=== PATIENT | male | born 1975 | race Caucasian/White ===

== ENCOUNTER 2018-09-26 15:04 | Emergency (ER) | payer OTHER ==
[2018-09-26] MEDS ORDERED: KETOROLAC 15 MG/1 ML SDV ONE (15:26)
[2018-09-26] MEDS ORDERED: KETOROLAC 15 MG/1 ML SDV IVP ONE (15:30)
[2018-09-26] MEDS ORDERED: fentaNYL 100 MCG/2 ML INJ IVP ONE (15:30)
[2018-09-26] MEDS ORDERED: DIAZEPAM 5 MG TAB PO ONE (15:30)
[2018-09-26] MEDS ORDERED: NS 1,000 ML IV ONE (15:30)
[2018-09-26 15:40] LABS: PLATELET COUNT 341 10^3/uL (150-400)
--- NOTE | 2018-09-26 15:41 | EDPHY ---
General - History Smoking Status: Never smoked Time Seen by Provider: 09/26/18 15:14 Narrative: CLINICAL IMPRESSION: Right ureterolithiasis, right exophytic renal cyst, pyuria ASSESSMENT/PLAN: 43-year-old male presents with right lower quadrant and right flank pain since this morning. Patient arrives appearing very uncomfortable and writhing on the bed but improved with IV analgesics. Vital signs stable, afebrile. He is otherwise healthy with no diabetes or history of kidney stones. Urine shows hematuria and pyuria. Culture ordered. He has mild leukocytosis of 12, creatinine of 1. CT shows a 2.5 mm right UV P stone with hydronephrosis. He also has a 6 mm exophytic cyst with calcification. It was recommended by Radiology that he have repeat CT imaging in 6 months and I related this to the patient. He was prescribed Flomax, [place], and Toradol, encouraged to increase fluid hydration and strain his urine. Antibiotics started pending urine culture. Follow up with Urology. Warning signs return to ED sooner alignment discharge. DIFFERENTIAL DX: Abdominal pain includes but not limited to acute appendicitis, diverticulitis, cholecystitis, pancreatitis, SBO, gastroenteritis, constipation ED PROCEDURES: See lab and/or imaging results below ED COURSE: 3:30 p.m.:. Patient seen by myself. Appears very uncomfortable, writhing in pain, appears consistent with renal colic. IV analgesics order, CT ordered. 4:20 p.m.: CT scan read by Dr. Dumont. 2.5 mm UVJ stone on the right with mild hydro. Patient also has an exophytic cyst of the right kidney with some calcification. It was recommended he have 6 month follow-up CT. This will be relayed to the patient. 4:25 p.m.: CT results discussed with patient. Will provide urology follow-up. Emphasized the importance of 6 month follow-up for exophytic cyst on the right kidney. CHIEF COMPLAINT: Right lower quadrant abdominal and flank pain HPI: 43-year-old male presents to the emergency department with relatively sudden onset right lower quadrant and right flank abdominal pain beginning this morning that has been progressively getting worse through the day. Patient reports feeling nauseous but has not vomited. Was feeling well prior to this morning and felt well last night. No decrease in appetite. No reported fevers. He does report he is on a ketogenic diet which predisposes him to kidney stones but he does not have a history of kidney stones. He reports no visible blood in his urine. He reports some urgency and burning with urination. No history of abdominal surgery. PAST MEDICAL HISTORY: Hypothyroidism See nurse/triage notes for additional history if applicable Pertinent Past Surgical History: None reported Family History: Noncontributory Social History: Here with family REVIEW OF SYSTEMS: All other systems negative Constitutional: No fever, no chills, appetite change. Cardiovascular: No chest pain, no palpitations. Respiratory: No cough, no shortness of breath. Gastrointestinal: Positive for right-sided abdominal pain, no vomiting, diarrhea. Genitourinary: No hematuria, positive for dysuria, positive for right-sided flank pain, pelvic pain Musculoskeletal: No back pain, joint swelling, joint pain, myalgias. Skin: No rashes, color change. PHYSICAL EXAM: General Appearance: Alert, oriented, pale, appears uncomfortable, colicky and writhing on the bed, non-toxic appearing, hypertensive, no hypoxia. HEENT: Oropharynx clear is no erythema or exudates, no tonsillar hypertrophy or asymmetry. Dentition without abnormality. Respiratory: There are no retractions, lungs are clear to auscultation. Cardiac: Regular rate and rhythm, no murmurs or gallops. Gastrointestinal: Abdomen is soft, generalized tenderness to right lower quadrant extending into right lateral abdomen and right flank bowel sounds normal, no masses/hernia, no rigidity, guarding or focal peritoneal findings. Neurological: [ Alert and oriented x 3, CN 2-12 grossly intact Skin: Warm, dry, no rashes, no nodules on palpation. MEDICAL DECISION MAKING: Patient was seen independently. Secondary supervising physician at time of evaluation was Dr. Spencer. Diagnosis: Right ureterolithiasis, right exophytic renal cyst, pyuria . New, requires workup Summary: See Assessment and Plan for summary of ED visit Clinical lab tests: ordered / reviewed. Independent visualization of images, tracing, or specimens: Yes. Patient Progress: Improved, stable for discharge. (Javad Arriaga) PHYSICIAN DOCUMENTATION: The patient was evaluated and managed by the Physician Assistant Professor Of Music. My co- signature indicates that I have reviewed this chart and I agree with the findings and plan of care as documented. I am the secondary supervising physician. (Becki Spencer) - Diagnostics Imaging Results: Imaging Impressions Abdomen/Pelvis CT 09/26/18 15:30 Impression: 1. A 2.5-mm calculus at the right ureterovesical junction, with mild hydronephrosis and hydroureter. 2. A 2.5-cm mildly complex cyst exophytic off the inferior pole of the right kidney. Recommend six-month follow-up CT. This would also be able to evaluate a nonspecific nodule subcentimeter in size in the posterior left lung base. Results called and discussed with Javad Arriaga PA-C, on September 26, 2018 at 1623. Attention: This CT examination is specifically designed to evaluate patients who are clinically suspected of having acute obstructive uropathy. This examination does not use radiographic contrast, and as such, provides only a limited evaluation of the abdomen, pelvis, and retroperitoneum. If there is further clinical suspicion for pathological conditions other than obstructive uropathy, a complete CT evaluation of the abdomen and pelvis utilizing intravenous, oral, and rectal contrast should be considered. E:CN/amm - Objective Vital Signs: Initial Vital Signs Temperature (C) 36.5 C 09/26/18 15:08 Heart Rate 140 H 09/26/18 15:08 Respiratory Rate 20 09/26/18 15:08 Blood Pressure 131/88 H 09/26/18 15:08 O2 Sat (%) 100 09/26/18 15:08 O2 Delivery Mode Room Air Allergies/Adverse Reactions: Penicillins Allergy (Unknown, Verified 09/26/18 15:06) Home Medications: Medication Instructions Recorded Depakote 04/02/12 [place] Thyroid 09/26/18 Azithromycin 09/26/18 Cephalexin [Keflex] 500 mg PO QID #20 cap 09/26/18 Hydrocodone/APAP 5/325 [[place] 1 - 2 tab PO Q4H PRN #10 tab 09/26/18 5/325 (*)] Ketorolac Tromethamine [Toradol 1 tab PO BID PRN 5 Days tab 09/26/18 10mg tab] Tamsulosin HCl [Flomax 0.4 MG (RX)] 0.4 mg PO DAILY #7 cap 09/26/18 Verapamil 09/26/18 Laboratory Results: Laboratory Results 09/26/18 15:12 09/26/18 15:12 09/26/18 09/26/18 09/26/18 15:25 15:13 15:12 WBC RBC Hgb POC Hgb 17.3 gm/dL gm/dL (13.7-17.5) Hct POC Hct 51 % % (40-51) MCV MCH MCHC RDW Plt Count MPV Neut % (Auto) Lymph % (Auto) Falls % (Auto) Eos % (Auto) Baso % (Auto) Nucleat RBC Rel Count Absolute Neuts (auto) Absolute Lymphs (auto) Absolute Monos (auto) Absolute Eos (auto) Absolute Basos (auto) Absolute Nucleated RBC Immature Gran % Seg Neutrophils % Band Neutrophils % Lymphocytes % Monocytes % Eosinophils % Basophils % Metamyelocytes % Myelocytes % Promyelocytes % Blast Cells % Immature Gran # Absolute Seg Neuts Absolute Band Neuts Absolute Lymphocytes Absolute Monocytes Absolute Eosinophils Absolute Basophils Absolute Metamyelocyte Absolute Myelocytes Absolute Promyelocytes Absolute Plasma Cells Nucleated RBCs Absolute Blast Cells Plasma Cells % Platelet Estimate Oval Macrocytes POC Sodium 141 mEq/L mEq/L (135-145) Sodium 137 mEq/L mEq/L (135-145) POC Potassium 3.2 mEq/L L mEq/L (3.3-5.0) Potassium 3.5 mEq/L mEq/L (3.5-5.2) POC Chloride 102 mEq/L mEq/L (97-110) Chloride 103 mEq/L mEq/L (97-110) Carbon Dioxide 21 mEq/l L mEq/l (22-31) POC Total CO2 23 mEq/L mEq/L (22-31) Anion Gap 13 mEq/L mEq/L (6-14) POC BUN 23 mg/dL mg/dL (7-23) BUN 23 mg/dL mg/dL (7-23) Creatinine 1.0 mg/dL mg/dL (0.7-1.3) POC Creatinine 1.0 mg/dL mg/dL (0.7-1.3) Estimated GFR > 60 Glucose 114 mg/dL H mg/dL (70-100) POC Glucose 120 mg/dL H mg/dL (70-100) Calcium 9.8 mg/dL mg/dL (8.5-10.4) Urine Color JASON Urine Appearance MODERATELY TURBID Urine pH 5.0 (5.0-7.5) Ur Specific [place] 1.023 (1.002-1.030) Urine Protein NEGATIVE (NEGATIVE) Urine Ketones 1+ H (NEGATIVE) Urine Blood 3+ H (NEGATIVE) Urine Nitrate NEGATIVE (NEGATIVE) Urine Bilirubin NEGATIVE (NEGATIVE) Urine Urobilinogen NEGATIVE EU EU (0.2-1.0) Ur Leukocyte Esterase NEGATIVE (NEGATIVE) Urine RBC 50-182 /hpf H /hpf (0-3) Urine WBC 5-10 /hpf H /hpf (0-3) Ur Epithelial Cells NONE SEEN /lpf /lpf (NONE-1+) Urine Mucus TRACE /lpf /lpf (NONE-1+) Urine Glucose NEGATIVE (NEGATIVE) 09/26/18 15:12 WBC 12.70 10^3/uL H 10^3/uL (3.80-9.50) RBC 5.15 10^6/uL 10^6/uL (4.40-6.38) Hgb 16.8 g/dL g/dL (13.7-17.5) POC Hgb Hct 48.8 % % (40.0-51.0) POC Hct MCV 94.8 fL fL (81.5-99.8) MCH 32.6 pg pg (27.9-34.1) MCHC 34.4 g/dL g/dL (32.4-36.7) RDW 11.9 % % (11.5-15.2) Plt Count 341 10^3/uL 10^3/uL (150-400) MPV 9.0 fL fL (8.7-11.7) Neut % (Auto) Not Reported Lymph % (Auto) Not Reported Falls % (Auto) Not Reported Eos % (Auto) Not Reported Baso % (Auto) Not Reported Nucleat RBC Rel Count Not Reported Absolute Neuts (auto) Not Reported Absolute Lymphs (auto) Not Reported Absolute Monos (auto) Not Reported Absolute Eos (auto) Not Reported Absolute Basos (auto) Not Reported Absolute Nucleated RBC Not Reported Immature Gran % Not Reported Seg Neutrophils % 54.1 % % Band Neutrophils % 0.0 % % Lymphocytes % 41.8 % % Monocytes % 2.1 % % Eosinophils % 0.0 % % Basophils % 1.0 % % Metamyelocytes % 0.0 % % Myelocytes % 1.0 % % Promyelocytes % 0.0 % % Blast Cells % 0.0 % % Immature Gran # Not Reported Absolute Seg Neuts 6.87 10^3/uL H 10^3/uL (1.70-6.50) Absolute Band Neuts 0.00 10^3/uL 10^3/uL (0.00-0.70) Absolute Lymphocytes 5.31 10^3/uL H 10^3/uL (1.00-3.00) Absolute Monocytes 0.27 10^3/uL L 10^3/uL (0.30-0.80) Absolute Eosinophils 0.00 10^3/uL L 10^3/uL (0.03-0.40) Absolute Basophils 0.13 10^3/uL H 10^3/uL (0.02-0.10) Absolute Metamyelocyte 0.00 10^3/mL 10^3/mL (0.00-0.00) Absolute Myelocytes 0.13 10^3/mL H 10^3/mL (0.00-0.00) Absolute Promyelocytes 0.00 10^3/uL 10^3/uL (0.00-0.00) Absolute Plasma Cells 0.00 10^3/uL 10^3/uL (0.00-0.00) Nucleated RBCs 3.1 /100 WBC H /100 WBC (0-0) Absolute Blast Cells 0.00 10^3/uL 10^3/uL (0.00-0.00) Plasma Cells % 0.0 % % Platelet Estimate ADEQUATE (ADEQ) Oval Macrocytes 1+ H POC Sodium Sodium POC Potassium Potassium POC Chloride Chloride Carbon Dioxide POC Total CO2 Anion Gap POC BUN BUN Creatinine POC Creatinine Estimated GFR Glucose POC Glucose Calcium Urine Color Urine Appearance Urine pH Ur Specific [place] Urine Protein Urine Ketones Urine Blood Urine Nitrate Urine Bilirubin Urine Urobilinogen Ur Leukocyte Esterase Urine RBC Urine WBC Ur Epithelial Cells Urine Mucus Urine Glucose Medications Given: Discontinued Medications Hydrocodone Bitart/Acetaminophen ([place] 5/325) 1 tab PO EDNOW ONE Stop: 09/26/18 16:32 Last Admin: 09/26/18 16:53 Dose: 1 tab Diazepam (Valium) 5 mg PO EDNOW ONE Stop: 09/26/18 15:31 Last Admin: 09/26/18 15:35 Dose: 5 mg Fentanyl (Sublimaze) 50 mcg IVP EDNOW ONE Stop: 09/26/18 15:31 Last Admin: 09/26/18 15:36 Dose: 50 mcg Sodium Chloride (Ns) 1,000 mls @ 0 mls/hr IV EDNOW ONE; Wide Open PRN Reason: Protocol Stop: 09/26/18 15:31 Last Admin: 09/26/18 15:31 Dose: 1,000 mls Ketorolac Tromethamine (Toradol) 15 mg IVP EDNOW ONE Stop: 09/26/18 15:31 Last Admin: 09/26/18 15:31 Dose: 15 mg Point of Care Test Results: Chemistry 09/26/18 15:25 POC Sodium 141 mEq/L mEq/L (135-145) POC Potassium 3.2 mEq/L L mEq/L (3.3-5.0) POC Chloride 102 mEq/L mEq/L (97-110) POC Total CO2 23 mEq/L mEq/L (22-31) POC BUN 23 mg/dL mg/dL (7-23) POC Creatinine 1.0 mg/dL mg/dL (0.7-1.3) POC Glucose 120 mg/dL H mg/dL (70-100) ISTAT H&H 09/26/18 15:25 POC Hgb 17.3 gm/dL gm/dL (13.7-17.5) POC Hct 51 % % (40-51) Departure - Departure Disposition: Home, Routine, Self-Care Clinical Impression: Ureterolithiasis Condition: Good Instructions: Kidney Cyst (ED), Ureteral Stones (ED) Additional Instructions: DISCHARGE INSTRUCTIONS FROM YOUR DOCTOR Thank you for visiting our emergency department today. You were treated by a physician assistant manager airside operations today and your case was reviewed with our ED Attending physician. Please keep in mind that discharge from the emergency department does not mean that there is nothing wrong - it simply means that we have not identified an emergency condition that requires further evaluation or treatment in the hospital. You should always plan to follow up with primary care for re- evaluation of your condition in the next 2-3 days. If you have been referred to a specialist, please call as soon as possible (today or tomorrow) to schedule your follow up appointment at the appropriate time. CT SCAN IN THE EMERGENCY DEPARTMENT SHOWS A 2.5 MM KIDNEY STONE AT THE JUNCTION OF THE URETER AND BLADDER. YOU SHOULD BE ABLE TO PASS THIS WITHOUT DIFFICULTY. YOU ALSO HAVE A 6 MM EXOPHYTIC CYST ON THE RIGHT KIDNEY THAT HAS SOME CALCIFICATION AND IT IS STRONGLY RECOMMENDED THAT YOU HAVE REPEAT CT SCAN IN 6 MONTHS. WE HAVE REFERRED YOU TO UROLOGY FOR MANAGEMENT OF THIS. YOU DO HAVE SOME WHITE BLOOD CELLS IN HER URINE AND A URINE CULTURE WAS SENT. IN THE MEANTIME, WE ARE PLACING YOU ON ANTIBIOTICS PENDING URINE CULTURE. PLEASE USE FLOMAX PRESCRIBED, PAIN MEDS NEEDED, STRAIN HER URINE, AND CALL UROLOGY FOR FOLLOW-UP. RETURN TO THE EMERGENCY DEPARTMENT SOONER FOR INCREASING ABDOMINAL OR FLANK PAIN, DEVELOPMENT OF FEVERS, NAUSEA, VOMITING, INABILITY TO URINATE, OR ANY OTHER CONCERN. People present with illnesses and injuries in different ways, and it is always possible that we have missed something. You may always return for re-evaluation if symptoms worsen or if they are not improving or if you develop new/different symptoms. Again, thank you for choosing our emergency department. We hope that you feel better. Referrals: NONE *PRIMARY CARE P,. [Primary Care Provider] - As per Instructions Gabriel Darby MD [Medical Doctor] - 1-2 days without fail Prescriptions: Cephalexin [Keflex] 500 mg PO QID #20 cap Hydrocodone/APAP 5/325 [[place] 5/325 (*)] 1 - 2 tab PO Q4H PRN #10 tab PRN Reason: Pain, Moderate Ketorolac Tromethamine [Toradol 10mg tab] 1 tab PO BID PRN 5 Days tab PRN Reason: Pain, Breakthrough Tamsulosin HCl [Flomax 0.4 MG (RX)] 0.4 mg PO DAILY #7 cap
[2018-09-26] MEDS ORDERED: HYDROCODONE/APAP 5/325 TAB PO ONE (16:31)
[2018-09-26 16:55] VITALS: BP 121/78
== END 2018-09-26 16:55 | disposition home or self-care (01) ==
DX: N20.1 Calculus of ureter (principal); N28.1 Cyst of kidney, acquired
CPT/HCPCS: 82435-PO; 82565-PO; 82947-PO; 84132-PO; 84295-PO; 84520-PO; 85014-ER; 96374; J1885; J3010